=== PATIENT | male | born 1965 | race African-American/Black ===

== ENCOUNTER 2019-07-03 08:29 | Day surgery (SDC) | payer OTHER ==
[~2019-07-03] VITALS: Ht 177.8 cm; Wt 106.9 kg
[2019-07-03] VITALS (13 sets, daily range): BP systolic 114–154; BP diastolic 72–101; PULSE 61–75; RESP 10–22; Ht 177.8 cm; Wt 106.9 kg
[~2019-07-03 08:29] MED LIST: CEFAZOLIN 2 GM/50 ML (PMX) 50 ML IVPB ONE
[2019-07-03] MEDS ORDERED: CEFAZOLIN 1 GM INJ ONE (12:16)
[2019-07-03] MEDS ORDERED: LIDOCAINE 2% (SDV) 5 ML INJ ONE (12:16)
[2019-07-03] MEDS ORDERED: PROPOFOL 20 ML ONE (12:16)
[2019-07-03] MEDS ORDERED: ONDANSETRON 4 MG INJ ONE (12:16)
[2019-07-03] MEDS ORDERED: MEPERIDINE 100 MG INJ ONE (12:16)
[2019-07-03] MEDS ORDERED: MEPERIDINE 25 MG INJ IV PRN (13:00)
[2019-07-03] MEDS ORDERED: FENTAnyl 50 MCG/ML VIAL IV PRN ×3 (13:00)
[2019-07-03] MEDS ORDERED: MIDAZOLAM 1 MG/ML 2 ML INJ IV PRN (13:00)
[2019-07-03] MEDS ORDERED: DIPHENHYDRAMINE 50 MG INJ IV PRN (13:00)
[2019-07-03] MEDS ORDERED: OXYCODONE/ACETAMINOPHEN (5/325) TAB PO PRN ×2 (13:00)
[2019-07-03] MEDS ORDERED: LABETALOL HCL 20MG INJ IV PRN (13:00)
[2019-07-03] MEDS ORDERED: EPHEDrine 25 MG/5 ML SYG IV PRN (13:00)
[2019-07-03] MEDS ORDERED: hydrALAzine 20 MG INJ IV PRN (13:00)
[2019-07-03] MEDS ORDERED: HYDROmorphONE 1 MG/5 ML IV SYRINGE IV PRN ×3 (13:00)
[2019-07-03] MEDS ORDERED: METOCLOPRAMIDE 10 MG INJ IV PRN (13:00)
[2019-07-03] MEDS ORDERED: ONDANSETRON 4 MG INJ IV PRN (13:00)
[2019-07-03] MEDS ORDERED: BACITRACIN 0.9 GM OINT ONE (13:24)
[2019-07-03] MEDS ORDERED: BUPIVACAINE 0.25% (MPF) 30 ML INJ ONE (13:26)
== END 2019-07-03 15:40 | disposition home or self-care (01) ==
LOC: SDS 08:29
PROVIDERS: ATTEND Orthopaedic Surgery
DX: S62.316A Displaced fracture of base of fifth metacarpal bone, right hand, initial encounter for closed fracture (principal); E66.9 Obesity, unspecified; R94.31 Abnormal electrocardiogram [ECG] [EKG]; X58.XXXA Exposure to other specified factors, initial encounter; Y93.89 Activity, other specified; Y92.89 Other specified places as the place of occurrence of the external cause; Y99.8 Other external cause status
CPT/HCPCS: 80048; 81003; 93005; J0690; J1170; J2175; J2405; J3010